=== PATIENT | female | born 1980 | race Caucasian/White ===

== ENCOUNTER 2022-10-21 17:07 | Emergency (ER) | payer OTHER, SELFPAY ==
[2022-10-21 17:08] VITALS: BP 166/97; PULSE 82; RESP 19; TEMP 36.3; O2SAT 95; BMI 25.0
--- NOTE | 2022-10-21 17:10 | NURSING ---
NO OLD EKGS
[2022-10-21 17:29] VITALS: BP 149/89; PULSE 83; RESP 18; O2SAT 98
--- NOTE | 2022-10-21 17:31 | EKG12_ITS ---
Test Reason : CP Blood Pressure : / mmHG Vent. Rate : 081 BPM Atrial Rate : 081 BPM P-R Int : 124 ms QRS Dur : 102 ms QT Int : 386 ms P-R-T Axes : 012 -03 041 degrees QTc Int : 448 ms Normal sinus rhythm Incomplete right bundle branch block Borderline ECG Confirmed by PEEWEE HODGES, KYMBERLY ([id number]), editor newspaper ALEA CARTER ([id number]) on 10/23/2022 12:38:32 PM Referred By: Confirmed By:KYMBERLY VIDES MD
--- NOTE | 2022-10-21 17:31 | CT_ITS ---
STUDY: CTA CHEST REASON FOR EXAM: Female, 41 years old. Right pleuritic pain RADIATION DOSAGE (If Supplied By Facility): CTDIvol = ( 8.61 ) mGy, DLP = ( 300.33 ) mGycm TECHNIQUE: The examination was performed with the intravenous administration of IV 100mL Isovue-370. Post-processing of the angiographic images was performed, with multiplanar reformation and 3D reconstruction. Individualized dose optimization techniques were used for this CT. COMPARISON: None. FINDINGS: Normal enhancement of the main pulmonary artery and right and left pulmonary arteries. Normal enhancement of the bilateral peripheral pulmonary arteries. There is no demonstrated pulmonary embolism. Normal thoracic aorta and visualized great vessels. There is no demonstrated aortic dissection. Normal heart and pericardium. Normal mediastinum. Normal hilar regions. Normal visualized trachea and bronchi. The lungs are well expanded. Mild subsegmental atelectasis in the left lower lobe. Normal pleura. Normal chest wall structures. Normal osseous structures. Normal visualized upper abdomen. CT/CTA Chest W/WO Contrast IMPRESSION: Mild subsegmental atelectasis in the left lower lobe. No evidence for pulmonary embolus Electronically Signed: Monroe Morillo MD at 18:41 EST ,
--- NOTE | 2022-10-21 17:33 | EDS_ITS ---
HPI History of Present Illness Chief Complaint: Chest Pain Narrative Narrative: 41-year-old female who denies significant past medical history states that she has had upper respiratory infection type symptoms and a cough for the last month. On Wednesday she went and saw a nurse practitioner who performed a chest x- ray, and was told that she had atelectasis on the left. 2 days ago, she developed right-sided pleuritic chest pain that has been increasing in nature. She tried to go back to the nurse practitioner but was told to come to the emergency department for evaluation because of her increasing pain. She denies any DVT or PE risk factors. 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 No shortness of breath. PFSH PFSH Home Medications albuterol 90 mcg/actuation aerosol inhaler 90 mcg inhalation Q6H PRN wheezing, sob 10/21/22 [History Last Taken Unknown] desogestrel 0.15 mg-ethinyl estradiol 0.03 mg tablet (Enskyce) 1 tab PO DAILY 10/21/22 [History Last Taken Unknown] prednisone 20 mg tablet 20 mg PO DAILY 10/21/22 [History Last Taken Unknown] Allergy/AdvReac Type Severity Reaction Status Date / Time meloxicam AdvReac Rash Verified 10/21/22 17:11 Social History Smoking Status: Never smoker ROS ROS ED ROS Narrative Constitutional: No fever, no chills. HEENT: No sore throat. No neck pain. No loss of vision. No rhinorrhea. Cardiovascular: Right-sided pleuritic chest pain. No palpitations. No pedal edema. Respiratory: 1 month of cough, no shortness of breath. Abdominal: No abdominal pain. No nausea. No vomiting. Genitourinary: No dysuria. No hematuria. Musculoskeletal: No myalgias. No arthralgias. Neurologic: No headaches. No dizziness. No lightheadedness. Skin: No rash. No change in color. Psychiatric: No depression. No anxiety. EXAM Physical Exam Narrative Exam Narrative: Afebrile. Vital signs noted. HEENT: Normocephalic. Atraumatic. PERRL, EOMI. Neck soft and supple. No point tenderness or step off. Cardiovascular: Regular rate and rhythm. No murmurs, rubs, or gallops appreciated. Respiratory: No tachypnea. Lungs clear to auscultation bilaterally. Occasional cough on exam. Gastrointestinal: Abdomen soft, nontender, with normoactive bowel sounds. Negative for feet sign. No rebound or guarding. Neurological: Awake. Alert. Nonfocal, nonlateralizing. Skin: No rash. Normal color. No pallor. Musculoskeletal: No pedal edema. Full range of motion extremities. Const Vital Signs: 10/21/22 17:08 10/21/22 17:29 10/21/22 17:29 Temperature 97.3 F L Temperature Source Temporal Pulse Rate 82 83 Respiratory Rate 19 H 18 Respiratory Effort Normal Blood Pressure 166/97 H 149/89 H Blood Pressure Mean 120 109 Pulse Ox 95 98 Oxygen Delivery Method Room Air Room Air 10/21/22 18:21 Temperature Temperature Source Pulse Rate 72 Respiratory Rate 18 Respiratory Effort Blood Pressure 132/74 H Blood Pressure Mean 90 Pulse Ox 98 Oxygen Delivery Method MDM MDM MDM Narrative Medical decision making narrative: Concern is for pulmonary embolism versus pleurisy. Comprehensive work-up was pursued. EKG was obtained to rule out STEMI and interpreted by myself which demonstrates normal sinus rhythm at 81 bpm without ectopy or acute ST changes. No evidence of STEMI on examination. I will obtain basic laboratory work includ ing CBC and BMP to make sure kidney function is acceptable for a CTA. Serum will also be obtained. I reviewed her laboratory work. She has a normal white count of 10.9, hemoglobin normal at 13.0, platelet count normal at 294. BMP shows normal sodium of 140 with potassium normal at 3.9, BUN is slightly elevated at 20 with a creatinine of 0.86. Glucose is appropriately elevated at 122 with a normal anion gap of 9. Serum is negative. High-sensitivity troponin is 3. This is greater than a 6-hour troponin. I do feel that she has been ruled out by biomarkers. CTA of the chest was reviewed and I reviewed the radiology report which shows no evidence of pulmonary embolism. Additionally, it does show the left lower side of segmental atelectasis. Upon repeat examination she is resting comfortably with her present. She is already on prednisone and taking ibuprofen. I do feel she may have pleurisy versus chest wall pain as she states that she does have pain with movement. I do not think that she has anything to do with cholecystitis as she has a nontender abdomen. At this point in time, she will be discharged to follow-up with her primary care physician. Return instructions were reviewed. Disposition is discharged home in stable condition. Lab Data Attestation: I reviewed the patient's lab results. Labs: Laboratory Results - last 24 hr 10/21/22 10/21/22 10/21/22 17:30 17:30 17:30 WBC 10.9 RBC 4.10 L Hgb 13.0 Hct 38.8 MCV 94.6 MCH 31.7 MCHC 33.5 RDW Std Deviation 42.7 RDW Coeff of Guy 12.2 Plt Count 294 MPV 10.5 Immature Gran % (Auto) 0.700 Neut % (Auto) 77.9 H Lymph % (Auto) 16.9 L Donley % (Auto) 4.3 Eos % (Auto) 0.0 Baso % (Auto) 0.2 Absolute Neuts (auto) 8.5 H Absolute Lymphs (auto) 1.84 Nucleated RBC % 0 Sodium 140 Potassium 3.9 Chloride 106 Carbon Dioxide 25.0 Anion Gap 9 BUN 20 H Creatinine 0.86 Estim Creat Clear Calc 100.35 Est GFR (MDRD) Af Amer 94 Est GFR (MDRD) Non-Af 78 BUN/Creatinine Ratio 23.4 H Glucose 122 H Calcium 9.6 Troponin I High Sens 3 Serum , Qual NEGATIVE Radiography Diagnostic Testing: Clinical Impression(s) from Imaging Studies Chest CTA 10/21/22 17:31 IMPRESSION: Mild subsegmental atelectasis in the left lower lobe. No evidence for pulmonary embolus Electronically Signed: Monroe Morillo MD at 18:41 EST , Discharge Plan Triage Chief Complaint: Chest Pain ED Provider: Micahel Barton Dx/Rx/DC Orders Clinical Impression: Pleurisy, Right-sided chest pain Instructions: ED Chest Pain, Uncertain Cause, ED Pleurisy Prescriptions: No Action desogestrel-ethinyl estradiol [Enskyce] 0.15-0.03 mg tablet 1 tab PO DAILY prednisone 20 mg Tablet 20 mg PO DAILY Rx Instructions: last dose scheduled for tomorrow 10/22 albuterol 90 mcg/actuation Aerosol 90 mcg INHALATION Q6H PRN (Reason: wheezing, sob) Primary Care Provider: Monroe Quiroz Referrals: Mornoe Quiroz MD [Primary Care Provider] - 3-5 Days if not improving Disposition Disposition: Home, Self Care
[2022-10-21] MEDS: 0.9% Normal Saline 1,000 ML 999 ML IV (17:44)
[2022-10-21 18:05] LABS: Absolute Lymphocyte Count 1.84 X10^3/uL (0.83-4.51); Absolute Neutrophil Count 8.5 X10^3/uL (2.0-7.7); Basophil# 0.02 X10^3/uL; Basophil% 0.2 % (0-1); Hematocrit 38.8 % (37-47); Lymphocyte # 1.84 X10^3/ul (0.83-4.51); Lymphocyte % 16.9 % (19-41); Mean Corp Hgb Conc 33.5 g/dL (32-36); Mean Corpuscular Hgb 31.7 pg (27.0-32.0); Mean Corpuscular Volume 94.6 fL (81-99); Mean Platelet Vol. 10.5 fl (6.2-12.0); Monocyte# 0.47 X10^3/uL; Monocyte% 4.3 % (0-10); NRBC Flagged by Analyzer 0 % (0-5); Neutrophil # 8.47 X10^3/uL (2.7-7.7); Neutrophil % 77.9 % (47-70); Platelet Count 294 K/mm3 (150-450); RBC Distribution Width CV 12.2 % (11.6-14.6); RBC Distribution Width SD 42.7 fl (35.1-43.9); White Blood Count 10.9 K/mm3 (4.4-11.0)
[2022-10-21 18:21] VITALS: BP 132/74; PULSE 72; RESP 18; O2SAT 98
[2022-10-21 18:33] LABS: Anion Gap 9 (5-15); BUN 20 mg/dL (7-18); BUN/Creat Ratio 23.4 RATIO (10-20); Calcium,Total 9.6 mg/dL (8.5-10.1); Chloride 106 mmol/L (98-107); Creatinine, Serum 0.86 mg/dL (0.55-1.02); EST Glomerular Filtration Rate 78 mL/min (>60); Est Glom Filt Rate - Afr Amer 94 mL/min (>60); Estimated Creatinine Clearance 100.35 ml/min; Glucose 122 mg/dL (74-106); Potassium 3.9 mmol/L (3.5-5.1); Sodium Level 140 mmol/L (136-145); Troponin-I HS 3 pg/mL (3.0-54.0)
[2022-10-21 18:47] LABS: Internal QC Validated? YES +Cl - CLEAR BKGD; Pregnancy, Serum, hCG Quali. NEGATIVE Negative
[2022-10-21 19:26] VITALS: BP 131/82; PULSE 59; RESP 16; O2SAT 97
== END 2022-10-21 19:26 | disposition home or self-care (01) ==
PROVIDERS: Emergency Provider Emergency Medicine; PCP Family Medicine; Visit Provider Emergency Medicine
DX: R09.1 Pleurisy (principal); J98.11 Atelectasis; Z79.52 Long term (current) use of systemic steroids
CPT/HCPCS: 71275; 80048; 84484; 84703; 85025; 93005; 96360; 99284; J7030; Q9967